=== PATIENT | female | born 1970 | race Caucasian/White ===

== ENCOUNTER → 2016-08-23 | Outpatient (CLI) | payer BC ==
[2016-08-23 12:54] VITALS: BP 142/86
== END ==
LOC: MHUC 12:33
PROVIDERS: ATTEND Physician Assistant
DX: J01.10 Acute frontal sinusitis, unspecified (principal)
CPT/HCPCS: 99203

== ENCOUNTER → 2016-10-03 | Outpatient (CLI) | payer BC ==
[~2016-10-03] MED LIST: CEFD300C PO; LEVO500T16 PO
[2016-10-03 12:57] VITALS: BP 137/82
--- NOTE | 2016-10-03 12:57 | Urgent Care T Sheet Gen (E) ---
Intake General Temperature (Fahrenheit): 98.7 Pulse: 82 Blood Pressure Systolic: 137 Blood Pressure Diastolic: 82 Respirations: 18 SPO2: 97 History of Present Illness Initial Comments Patient presents with possible sinus infection. Patient was last seen on Aug 23 with similar symptoms. Does have a history of surgery with nasal access. At patient's last appt, told her the nasal congestion could be either due to infection or scar tissue. She was placed on Cefdinir and said she felt better for a few days however the nasal congestion and purulent drainage came right back. Notes PND however no cough. No fever. Uses Singulair, Claritin and Flonase daily. Also uses a Nettipot. Home Meds Active Scripts Levofloxacin (Levaquin)500 Mg Tablet1 Tab PO DAILY Infection #14 TAB Ref 0 Prov:ALAN JOAQUIN 10/03/16 Cefdinir 300 Mg [id number] Mg PO BID #20 CAP Prov:ALAN JOAQUIN 08/23/16 Respiratory Constitutional Symptoms: No syptoms reported EENTM: Nose Congestion Respiratory: No symptoms reported Cardiovascular: No symptoms reported Gastrointestinal/Abdominal: No symptoms reported All Other Systems Reviewed Remaining Systems: All other systems reviewed with negative findings Physical Exam Physical Exam General Appearance: WD/WN No apparent distress Eyes, Ears, Nose, Throat Ex: TMs normal Pharyngeal erythema (cobblestone appearance) Other (red, swollen nasal turbinate on the R side. purulent drainage is noted.) Neck Exam: SuppleNo Lymphadenopathy Respiratory Exam: Lungs clear Normal breath sounds Cardiovascular Exam: Regular rate, rhythm Departure Urgent Care Impression Impression: Primary Impression: Sinusitis Qualified Code: J01.00 - Acute maxillary sinusitis, unspecified Departure Disposition: HOME OR SELF-CARE Condition: Stable Additional Instructions: I have started the patient on Levaquin for treatment Instructed her to continue with her daily meds I have referred her to Dr Ann for evaluation/treatment. Again, I am unsure if her recurrent nasal congestion is due to infection or adhesions Return as needed Patient understands DC instructions. All questions were answered. Scripts Levofloxacin (Levaquin)500 Mg Tablet1 Tab PO DAILY Infection #14 TAB Ref 0 Prov:ALAN JOAQUIN 10/03/16 End of report . ALAN JOAQUIN Oct 03, 2016 12:48
== END ==
LOC: MHUC 12:34
PROVIDERS: ATTEND Physician Assistant
DX: J01.00 Acute maxillary sinusitis, unspecified (principal)
CPT/HCPCS: 99213